=== PATIENT | female | born 1985 | race Caucasian/White ===

== ENCOUNTER 2017-07-19 22:12 | Emergency (ER) | payer OTHER ==
[~2017-07-19] VITALS: Ht 152.4 cm; Wt 79.0 kg
[~2017-07-19 22:12] MED LIST: BACTRIM DS1 TAB PO; CYCLOBENZAPRINE10 MG PO; CYMBALTA30 MG PO; EPITOL200 MG PO; FLEXERIL PO; FLONASE NASAL50 MCG; GABAPENTIN300 MG PO; LAMICTAL100 M1 PO; LAMICTAL200 MG PO; LORAZEPAM0.5 MG PO; MELOXICAM15 MG PO; MINIPRESS2 MG PO; NEXIUM20 M1 PO; NORCO1 TA2 PO; PAROXETINE10 MG PO; PAXIL30 MG PO; PHENERGAN25 MG/TAB PO; PRAZOSIN HCL2 M1 PO; PROLIXIN 5 MG TA5 MG PO; PROMETHAZINE25 M1 PO; VISTARIL 50MG C50 M1 PO; VITAMIN E1000 UNIT PO; prolixin
[2017-07-20 01:02] VITALS: BP 122/70
== END 2017-07-20 01:01 | disposition home or self-care (01) | DRG 556 ==
LOC: ED 22:12
DX: M79.7 Fibromyalgia (principal); R51 Headache

== ENCOUNTER 2017-11-01 22:47 | Emergency (ER) | payer OTHER ==
[~2017-11-01] VITALS: Ht 152.4 cm; Wt 80.0 kg
[2017-11-01] MEDS ORDERED: LEXAPRO10 MG PO ×2 (23:14)
[2017-11-02 01:08] LABS: HEMATOCRIT 36.9 % (37.0-47.0); HEMOGLOBIN 12.8 g/dl (12.0-16.0); IMMATURE GRANULOCYTES 0.2 % (0.0-1.0); MEAN CELL VOLUME 87.6 fL CALC (80.0-100.0); MEAN CORPUSCULAR HGB 30.4 pG CALC (26.0-32.0); MEAN CORPUSCULAR HGB CONC 34.7 g/L CALC (32.0-36.0); NEUT# 3.79 thou/uL (2.00-7.15); RED BLOOD COUNT 4.21 mill/uL (4.20-5.60); RED CELL DISTRI WIDTH 13.5 % (11.5-15.5)
[2017-11-02 01:15] LABS: ALBUMIN 4.5 g/dL (3.2-5.0); ALKALINE PHOSPHATASE 75 u/l (38-126); ANION GAP 15 (6-22 (CALC)); BILIRUBIN, TOTAL 0.2 mg/dL (0.0-1.4); BUN 13 mg/dL (7-17); BUN/CREATININE RATIO 16 (12-20 (CALC)); CARBON DIOXIDE 22 mmol/l (22-30); CHLORIDE 107 mmol/l (95-108); CREATININE 0.8 mg/dL (0.5-1.0); GFR > 60 ML/MIN (>=60 (CALC)); GFR FOR AFR.AMER. > 60 ML/MIN (>=60 (CALC)); POTASSIUM 3.7 mmol/l (3.5-5.1); SGOT/AST 36 u/l (14-36); SGPT/ALT 43 u/l (9-52); SODIUM 141 mmol/l (137-146); TOTAL PROTEIN 7.3 g/dL (6.3-8.2)
[2017-11-02] MEDS ORDERED: FIORICET PO (01:23)
[2017-11-02] MEDS ORDERED: PHENERGAN25 MG/TAB PO (01:23)
[2017-11-02 01:43] VITALS: BP 111/65
== END 2017-11-02 01:43 | disposition home or self-care (01) | DRG 605 ==
LOC: ED 22:47
PROVIDERS: Emergency Medicine
DX: S00.93XA Contusion of unspecified part of head, initial encounter (principal); F17.210 Nicotine dependence, cigarettes, uncomplicated; F99 Mental disorder, not otherwise specified; W19.XXXA Unspecified fall, initial encounter

== ENCOUNTER 2018-02-03 11:44 | Emergency (ER) | payer OTHER ==
[~2018-02-03] VITALS: Ht 152.4 cm; Wt 85.0 kg
[~2018-02-03 11:44] MED LIST changes: +FIORICET PO; +LEXAPRO10 MG PO
[2018-02-03] MEDS ORDERED: TRAMADOL HYDROC50 MG PO (13:06)
[2018-02-03] MEDS ORDERED: MOTRIN800 MG PO (13:06)
[2018-02-03] MEDS ORDERED: FLEXERIL PO (13:06)
[2018-02-03 13:17] VITALS: BP 109/70
== END 2018-02-03 13:15 | disposition home or self-care (01) | DRG 605 ==
LOC: ED 11:44
DX: S30.0XXA Contusion of lower back and pelvis, initial encounter (principal); S39.012A Strain of muscle, fascia and tendon of lower back, initial encounter; F17.210 Nicotine dependence, cigarettes, uncomplicated; W20.8XXA Other cause of strike by thrown, projected or falling object, initial encounter; Y93.89 Activity, other specified; Y92.009 Unspecified place in unspecified non-institutional (private) residence as the place of occurrence of the external cause

== ENCOUNTER 2019-10-31 | Emergency (ER) | payer OTHER ==
[~2019-10-31] MED LIST changes: +MOTRIN800 MG PO; +TRAMADOL HYDROC50 MG PO
[2019-10-31] MEDS ORDERED: PRAZOSIN HCL2 M1 PO (22:59)
[2019-10-31] MEDS ORDERED: TRILEPTAL300 M1 PO (22:59)
[2019-10-31] MEDS ORDERED: WELLBUTRIN XL150 MG PO (22:59)
[2019-10-31] MEDS ORDERED: PROTONIX40 MG PO (23:00)
[2019-10-31] MEDS ORDERED: LYRICA50 MG PO (23:00)
[2019-10-31] MEDS ORDERED: SINGULAIR10 MG PO (23:00)
[2019-10-31] MEDS ORDERED: HYDROCO/APAP1 TA9 PO (23:01)
[2019-10-31] MEDS ORDERED: ZANAFLEX4 M2 PO (23:02)
[2019-10-31 23:31] LABS: URINE BILIRUBIN - DIPSTICK NEGATIVE (NEGATIVE); URINE BLOOD DIPSTICK NEGATIVE (NEGATIVE); URINE COLOR YELLOW; URINE GLUCOSE - DIPSTICK NEGATIVE (NEGATIVE); URINE KETONE NEGATIVE (NEGATIVE); URINE LEUK ESTERASE NEGATIVE (NEGATIVE); URINE NITRITE - DIPSTICK NEGATIVE (Negative); URINE PROTEIN - DIPSTICK NEGATIVE (NEG-TRACE); URINE SPECIFIC GRAVITY >=1.030; URINE UROBILINOGEN - DIPSTICK 0.2 E.U./dL (0.2)
[2019-10-31 23:32] LABS: HEMATOCRIT 36.1 % (37.0-47.0); HEMOGLOBIN 12.2 g/dl (12.0-16.0); IMMATURE GRANULOCYTES 0.3 % (0.0-5.0); MEAN CELL VOLUME 88.5 fL CALC (80.0-100.0); MEAN CORPUSCULAR HGB 29.9 pG CALC (26.0-32.0); MEAN CORPUSCULAR HGB CONC 33.8 g/L CALC (32.0-36.0); NEUT# 4.11 thou/uL (2.00-7.15); RED BLOOD COUNT 4.08 mill/uL (4.20-5.60); RED CELL DISTRI WIDTH 12.7 % (11.5-15.5)
[2019-10-31 23:44] LABS: ALBUMIN 3.6 g/dL (3.2-5.0); ALKALINE PHOSPHATASE 45 u/l (38-126); ANION GAP 12 (6-22 (CALC)); BUN 14 mg/dL (7-17); BUN/CREATININE RATIO 21 (12-20 (CALC)); CARBON DIOXIDE 20 mmol/l (22-30); CHLORIDE 112 mmol/l (95-108); CREATININE 0.7 mg/dL (0.5-1.0); GFR > 60 ML/MIN (>=60 (CALC)); GFR FOR AFR.AMER. > 60 ML/MIN (>=60 (CALC)); LIPASE 132 u/l (23-300); POTASSIUM 3.8 mmol/l (3.5-5.1); SGOT/AST 16 u/l (14-36); SODIUM 139 mmol/l (137-146); TOTAL PROTEIN 6.6 g/dL (6.3-8.2)
[2019-10-31 23:46] LABS: AMYLASE < 30 u/l (30-110); BILIRUBIN, TOTAL 0.4 mg/dL (0.0-1.4)
[2019-11-01] MEDS ORDERED: LOMOTIL2.5 MG PO (01:26)
[2019-11-01] MEDS ORDERED: PHENERGAN25 MG/TAB PO (01:26)
== END 2019-11-01 01:39 | disposition home or self-care (01) ==
PROVIDERS: Family Medicine
DX: A08.4 Viral intestinal infection, unspecified (principal); F17.210 Nicotine dependence, cigarettes, uncomplicated

== ENCOUNTER 2022-08-08 07:08 | Day surgery (SDC) | payer OTHER ==
[~2022-08-08] VITALS: Ht 152.4 cm; Wt 90.7 kg
[~2022-08-08 07:08] MED LIST changes: +HYDROCO/APAP1 TA9 PO; +LOMOTIL2.5 MG PO; +LYRICA50 MG PO; +PROTONIX40 MG PO; +SINGULAIR10 MG PO; +TRILEPTAL300 M1 PO; +WELLBUTRIN XL300 MG; +ZANAFLEX4 M2 PO
[2022-08-08] MEDS ORDERED: BUSPAR5 MG PO (08:32)
[2022-08-08] MEDS ORDERED: NEXIUM20 M1 PO (08:32)
[2022-08-08] MEDS ORDERED: KEPPRA500 M2 PO (08:33)
[2022-08-08 10:26] VITALS: BP 112/64
== END 2022-08-08 10:51 | disposition home or self-care (01) ==
LOC: ORM 07:08
PROVIDERS: ATTEND Physical Medicine & Rehabilitation
DX: M25.511 Pain in right shoulder (principal); G89.4 Chronic pain syndrome; G56.81 Other specified mononeuropathies of right upper limb
CPT/HCPCS: J1100; Q9967

== ENCOUNTER 2023-01-23 07:33 | Day surgery (SDC) | payer MEDICAID ==
[~2023-01-23] VITALS: Ht 157.5 cm; Wt 99.8 kg
[~2023-01-23 07:33] MED LIST changes: +BUSPAR5 MG PO; +KEPPRA500 M2 PO
[2023-01-23 07:57] LABS: HCG SERUM/URINE (NEG/POS) NEGATIVE (NEGATIVE)
[2023-01-23 10:27] VITALS: BP 128/84
== END 2023-01-23 09:44 | disposition home or self-care (01) ==
LOC: ORM 07:33
PROVIDERS: ATTEND Physical Medicine & Rehabilitation
DX: G56.81 Other specified mononeuropathies of right upper limb (principal); M25.511 Pain in right shoulder; G89.4 Chronic pain syndrome
CPT/HCPCS: Q9966